=== PATIENT | female | born 1985 | race Two or more races ===

== ENCOUNTER 2018-06-02 21:40 | Emergency (ER) | payer BC, OTHER ==
[~2018-06-02] VITALS: Ht 167.6 cm; Wt 68.9 kg
[2018-06-02 21:51] VITALS: BP 134/90
[2018-06-02] MEDS ORDERED: KETOROLAC TROMETHAMINE INJ 60 MG/2 ML VIAL IM ONE (22:30)
[2018-06-02] MEDS ORDERED: KETOROLAC TROMETHAMINE INJ 30 MG/ML VIAL ONE (22:33)
== END 2018-06-02 22:38 | disposition home or self-care (01) ==
LOC: ER 21:41
DX: M62.838 Other muscle spasm (principal); M25.511 Pain in right shoulder
CPT/HCPCS: 96372; 99283; A4606; J1885; Z7610